=== PATIENT | female | born 1985 | race Caucasian/White ===

== ENCOUNTER 2021-10-22 08:00 | Inpatient (IN) | payer OTHER ==
[2021-10-22 08:50] VITALS: BMI 31.8
[2021-10-22] MEDS ORDERED: OXYTOCIN 30 UNITS in 0.9% NS 30 UNIT/500 ML INFUS.BAG IVPB ONE (08:57)
[2021-10-22] MEDS ORDERED: PROMETHAZINE HCL 25 MG/1 ML VIAL IVPUSH ONE (09:53)
[2021-10-22] MEDS ORDERED: BUTORPHANOL TARTRATE 2 MG/ML VIAL IVPB ONE (09:53)
[2021-10-22] MEDS ORDERED: DEXTROSE 5%-LACTATED RINGERS 1,000 ML IV SCH (10:00)
[2021-10-22] MEDS ORDERED: OXYTOCIN 30 UNITS in 0.9% NS 30 UNIT/500 ML INFUS.BAG IVPB SCH (10:00)
[2021-10-22] MEDS ORDERED: FENTANYL/BUPIVACAINE/NS/PF - PCEA - 50 ML DISP.SYRIN EP ONE ×2 (16:58→22:10)
[2021-10-22] MEDS ORDERED: NALOXONE HCL 0.4 MG/ML VIAL IVPUSH PRN (17:02)
[2021-10-22] MEDS ORDERED: BUPIVACAINE HCL/PF 0.25% (2.5MG/ML) 10 ML VIAL ONE ×2 (17:04→22:52)
[2021-10-22] MEDS ORDERED: FENTANYL/BUPIVACAINE/NS/PF - PCEA - 50 ML DISP.SYRIN EP SCH (17:15)
[2021-10-23] MEDS ORDERED: FENTANYL/BUPIVACAINE/NS/PF - PCEA - 50 ML DISP.SYRIN EP ONE (01:28)
[2021-10-23] MEDS ORDERED: BUPIVACAINE HCL/PF 0.5% (5MG/ML) 10 ML VIAL ONE (01:53)
[2021-10-23] MEDS ORDERED: morphine SULFATE/PF 1 MG/2 ML (2cc Syringe - QUVA) ONE (02:00)
[2021-10-23] MEDS ORDERED: ceFAZolin SODIUM 1 GM VIAL ONE (02:15)
[2021-10-23] MEDS ORDERED: ONDANSETRON 4 MG/2 ML VIAL ONE (02:15)
[2021-10-23] MEDS ORDERED: OXYTOCIN 10 UNITS/ML VIAL ONE (02:28)
[2021-10-23] MEDS ORDERED: SENNOSIDES/DOCUSATE COMBO (SENNA PLUS) TABLET (UD) PO PRN (03:27)
[2021-10-23] MEDS ORDERED: ACETAMINOPHEN 325 MG TABLET (FP) PO PRN (03:27)
[2021-10-23] MEDS ORDERED: IBUPROFEN 800 MG/8 ML IJ IVPB PRN (03:27)
[2021-10-23] MEDS ORDERED: METHYLERGONOVINE MALEATE 0.2 MG/1 ML AMP IM PRN (03:27)
[2021-10-23] MEDS ORDERED: OXYTOCIN 20 UNITS in 0.9% NS 20 UNIT/1,000 ML INFUS.BAG IV SCH (03:30)
[2021-10-23] MEDS ORDERED: OXYTOCIN 20 UNITS in 0.9% NS 20 UNIT/1,000 ML INFUS.BAG IV ONE (04:41)
[2021-10-23 07:10] LABS: BASO % 0.2 % (0-2.0); HEMATOCRIT 29.5 % (32.4-45.2); HEMOGLOBIN 10.1 GM/dL (10.7-15.3); LYMPH % 5.9 % (8-40); MCH 30.6 pg (25.7-33.7); MCHC 34.2 g/dl (32.0-36.0); MEAN CELL VOLUME 89.7 fl (80-96); MEAN PLT VOLUME 9.7 fl (7.5-11.1); MONO % 6.1 % (3.8-10.2); NEUT % 87.8 % (42.8-82.8); PLATELET COUNT 177 10^3/uL (134-434); RBC 3.29 M/mm3 (3.60-5.2); RDW 13.2 % (11.6-15.6); WHITE BLOOD COUNT 16.7 K/mm3 (4.0-10.0)
[2021-10-23] MEDS: FERROUS SO4 325 MG TABLET (FP) PO SCH ×2 (09:39→21:13)
[2021-10-23] MEDS: PRENATAL VITAMINS W/ FOLIC ACID TABLET (FP) PO SCH (09:39)
[2021-10-23] MEDS: IBUPROFEN 600 MG TABLET (FP) PO PRN ×2 (14:51→20:45)
[2021-10-23] MEDS: SIMETHICONE 80 MG TAB.CHEW (FP) PO PRN ×2 (14:51→20:46)
[2021-10-23] MEDS ORDERED: MAG HYDROX/AL HYDROX/SIMETH 30 ML UNIT-DOSE CUP PO PRN (15:00)
[2021-10-23] MEDS ORDERED: oxyCODONE HCL 5 MG TABLET PO PRN ×2 (15:27)
[2021-10-24] MEDS ORDERED: BISACODYL 10 MG SUPP.RECT RC PRN (03:27)
[2021-10-24] MEDS: IBUPROFEN 600 MG TABLET (FP) PO PRN ×2 (08:59→13:34)
[2021-10-24] MEDS: SIMETHICONE 80 MG TAB.CHEW (FP) PO PRN ×2 (09:00→13:34)
[2021-10-24] MEDS: PRENATAL VITAMINS W/ FOLIC ACID TABLET (FP) PO SCH (10:39)
[2021-10-24] MEDS: FERROUS SO4 325 MG TABLET (FP) PO SCH (10:39)
[2021-10-24 11:54] VITALS: BP 98/60; PULSE 89; TEMP 98.2
== END 2021-10-24 15:00 | disposition home or self-care (01) | DRG 540 ==
LOC: JLDR 08:00 → J3W 10-23 05:16
PROVIDERS: ADMIT Obstetrics & Gynecology; ATTEND Obstetrics & Gynecology
PROC: 10D00Z1 Extraction of Products of Conception, Low, Open Approach (ICD-10-PCS; principal; 2021-10-23)
PROC: 10907ZC Drainage of Amniotic Fluid, Therapeutic from Products of Conception, Via Natural or Artificial Opening (ICD-10-PCS; 2021-10-23)
PROC: 0DNW0ZZ Release Peritoneum, Open Approach (ICD-10-PCS; 2021-10-23)
DX: O48.0 Post-term pregnancy (principal); O62.0 Primary inadequate contractions; O69.81X0 Labor and delivery complicated by cord around neck, without compression, not applicable or unspecified; K66.0 Peritoneal adhesions (postprocedural) (postinfection); Z3A.40 40 weeks gestation of pregnancy; Z37.0 Single live birth
CPT/HCPCS: 36415; 85025; 88307-TC